=== PATIENT | male | born 1950 | race Caucasian/White ===

== ENCOUNTER 2021-02-27 12:42 | Emergency (ER) | payer MEDICARE, BC ==
[~2021-02-27] VITALS: Ht 195.6 cm; Wt 111.4 kg
[2021-02-27 13:49] VITALS: BP 108/81
[2021-02-27] MEDS ORDERED: SOTROVIMAB 500mg injection 500 MG in normal saline 100ml IV soln 100 ML IV ONE (14:05)
[2021-02-27] MEDS ORDERED: ketorolac trometh. 30mg/ml inj. IV ONE (15:50)
[2021-02-27] MEDS ORDERED: BUDE180A INH (17:05)
[2021-02-27] MEDS ORDERED: PRED20TA PO (17:05)
[2021-02-27] MEDS ORDERED: ALBU6.7H9 INH (17:05)
== END 2021-02-27 16:41 | disposition home or self-care (01) ==
LOC: ER 12:42
DX: U07.1 COVID-19 (principal); Z86.711 Personal history of pulmonary embolism; Z88.1 Allergy status to other antibiotic agents; Z88.2 Allergy status to sulfonamides
CPT/HCPCS: 71045; 96374; 99284; J1885; J3490; M0247; Q0247